=== PATIENT | male | born 1980 | race Two or more races ===

== ENCOUNTER → 2019-11-01 | Emergency (ER) | payer OTHER ==
[~2019-11-01] VITALS: Ht 180.3 cm; Wt 95.3 kg
[~2019-11-01] MED LIST: HYDROmorphone HCL 2 MG/ML VL IV ONE; KETOROLAC TROMETH 15 mg/ml 1ML VL IV ONE; KETOROLAC TROMETH 30 MG/ML 1ML VIAL ONE; ONDANSETRON HCL 4 MG/2 ML VIAL IV ONE; ONDANSETRON HCL 4 MG/2 ML VIAL ONE; SODIUM CHLORIDE 0.9% 1,000 ML IV ONE
[2019-11-01 01:41] LABS: Basophils # (auto) 0.1 10 ^3/uL (0-0.2); Basophils % (auto) 0.5 % (0.0-2.0); Eosinophils # (auto) 0.1 10 ^3/uL (0-0.8); Eosinophils % (auto) 0.6 % (0.0-7.0); Hematocrit 44.2 % (41.0-53.0); Hemoglobin 14.9 g/dL (13.5-17.5); Lymphocytes # (auto) 2.1 10 ^3/uL (0.4-5.4); Lymphocytes % (auto) 18.9 % (10.0-50.0); Mean Corpuscular Hemoglobin 29.5 pg (28.0-32.0); Mean Corpuscular Hgb Conc. 33.8 g/dL (32.0-36.0); Mean Corpuscular Volume 87.5 fL (80.0-100.0); Monocytes # (auto) 0.7 10 ^3/uL (0-1.3); Neutrophils # (auto) 8.2 10 ^3/uL (1.6-8.6); Nucleated Red Blood Cells % 0.1 %; Platelet Count (auto) 245 10^3/uL (140-450); Red Blood Cells 5.06 10^6/uL (4.5-5.90); Red Cell Distribution Width 13.3 % (11.8-14.3)
[2019-11-01 02:25] LABS: Albumin 3.9 g/dL (3.4-5.0); BUN/Creatinine Ratio 11.9; Calcium 9.1 mg/dL (8.5-10.1); Potassium 3.8 mmol/L (3.5-5.1)
[2019-11-01 02:28] LABS: Bilirubin, Total 0.5 mg/dL (0.2-1.0); Total Protein 7.8 g/dL (6.4-8.2)
[2019-11-01 03:11] VITALS: BP 131/81
[2019-11-01 04:41] LABS: Urine WBC None Seen /hpf (0 - 3)
[2019-11-01 05:06] LABS: Urine Bacteria NONE SEEN /hpf (None Seen); Urine Blood 2+ /uL (Negative); Urine Mucus FEW (None Seen); Urine Specific Gravity 1.033 (1.001-1.035)
== END | disposition home or self-care (01) ==
LOC: ER 00:38
DX: N23 Unspecified renal colic (principal); N13.2 Hydronephrosis with renal and ureteral calculous obstruction; E11.9 Type 2 diabetes mellitus without complications
CPT/HCPCS: 36415; 74176; 80053; 81001; 82150; 83690; 85025; 96374; 96375; 99284; J1170; J1885; J2405

== ENCOUNTER 2023-10-20 09:37 | Emergency (ER) | payer OTHER ==
[~2023-10-20] VITALS: Ht 180.3 cm; Wt 91.0 kg
[2023-10-20] MEDS: SODIUM CHLORIDE 0.9% 500 ML IV ONE (11:18)
[2023-10-20 12:11] LABS: Alanine Aminotransferase 24 U/L (7-40); Albumin 4.5 g/dL (3.2-4.8); Alkaline Phosphatase 67 U/L (46-116); Anion Gap 8 (5-15); Aspartate Aminotransferase 22 U/L (13-40); BUN/Creatinine Ratio 12.2 (10.0-20.0); Bilirubin, Total 0.5 mg/dL (0.2-1.0); Blood Urea Nitrogen 11 mg/dL (9-23); Calcium 9.3 mg/dL (8.5-10.1); Carbon Dioxide 24 mmol/L (20-30); Chloride 102 mmol/L (98-107); Glucose 197 mg/dL (74-106); Potassium 4.4 mmol/L (3.5-5.1); Sodium 134 mmol/L (136-145); Total Protein 7.2 g/dL (5.7-8.2)
[2023-10-20 12:19] LABS: COVID19 ANTIGEN SOFIA FIA NEGATIVE (NEGATIVE)
[2023-10-20 12:27] LABS: Rapid Influenza A Negative (Negative)
[2023-10-20 12:30] LABS: Rapid Influenza B Positive (Negative)
[2023-10-20 13:18] LABS: Basophils # (auto) 0.1 10 ^3/uL (0-0.2); Eosinophils # (auto) 0.1 10 ^3/uL (0-0.8); Hemoglobin 8.2 g/dL (13.5-17.5); Neutrophils # (auto) 5.5 10 ^3/uL (1.6-8.6)
[2023-10-20 13:21] LABS: Basophils % (auto) 0.8 % (0.0-2.0); Eosinophils % (auto) 1.5 % (0.0-7.0); Hematocrit 26.6 % (41.0-53.0); Lymphocytes # (auto) 1.6 10 ^3/uL (0.4-5.4); Lymphocytes % (auto) 19.9 % (10.0-50.0); Mean Corpuscular Hgb Conc. 30.9 g/dL (32.0-36.0); Mean Corpuscular Volume 64.9 fL (80.0-100.0); Monocytes # (auto) 0.8 10 ^3/uL (0-1.3); Monocytes % (auto) 9.9 % (0.0-12.0); Neutrophils % (auto) 67.9 % (37.0-80.0); Red Blood Cells 4.09 10^6/uL (4.5-5.90); Red Cell Distribution Width 16.2 % (11.8-14.3)
[2023-10-20 14:52] LABS: Platelet Estimate Adequate
[2023-10-20 14:53] LABS: Hypochromia Marked
[2023-10-20 17:00] VITALS: BP 125/85; PULSE 90; RESP 12; TEMP 97.9; O2SAT 99
== END 2023-10-20 14:05 | disposition short-term general hospital (02) ==
LOC: ER 09:37
DX: C18.9 Malignant neoplasm of colon, unspecified (principal); C79.9 Secondary malignant neoplasm of unspecified site; D64.9 Anemia, unspecified; J10.1 Influenza due to other identified influenza virus with other respiratory manifestations; E11.65 Type 2 diabetes mellitus with hyperglycemia; R53.1 Weakness; Z87.891 Personal history of nicotine dependence; Z20.822 Contact with and (suspected) exposure to COVID-19
CPT/HCPCS: 36415; 71046; 80053; 85025; 86850; 86900; 86901; 87426; 87804; 96360; 99285; J7040